=== PATIENT | female | born 1975 | race Caucasian/White ===

== ENCOUNTER → 2018-06-02 | Outpatient (CLI) | payer OTHER ==
[~2018-06-02] MED LIST: CITA-128 PO; IBU800 PO; PREN-85 PO
--- NOTE | 2018-06-03 08:31 | RADIOLOGY IMAGING REPORT ---
FACILITY: [facility] PATIENT NAME: JAIRO ROMEO : [id number] MR: [id number] V: [id number] EXAM DATE: ORDERING PHYSICIAN: ENDER BEAR TECHNOLOGIST: Ros Culver PROCEDURE:BILATERAL DIAGNOSTIC DIGITAL MAMMOGRAM WITH CAD ASSISTED INTERPRETATION & 3D TOMOSYNTHESIS COMPARISON:Prior mammogram 11/21/14 Prior breast MR 09/04/15. INDICATIONS:RT BREAST MASS, FIBROCYSTIC CHANGES, IMPLANTS FINDINGS: There are bilateral subpectoral breast implants in place. Dense heterogeneous fibroglandular tissue is seen anterior to the implants. The parenchymal pattern has remained stable allowing for difference in mammographic technique & patient positioning. There is no evidence of malignant appearing mass, malignant appearing calcifications or other secondary sign of malignancy in either breast. 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 DIAGNOSTIC CATEGORY 3--PROBABLY BENIGN FINDING. RECOMMENDATIONS: SIX MONTH FOLLOW-UP DIAGNOSTIC MAMMOGRAM: RIGHT BREAST. IMPRESSION: BIRADS 3: Probably benign finding. A 6 month follow-up Right breast Ultrasound is recommended as described above. Dictated by: Gilma Ramos M.D. on 06/02/2018 at 16:23 Transcribed by: ALESIA on 06/03/2018 at 8:27 Approved by: Gilma Ramos M.D. on 06/03/2018 at 8:30 [facility]
--- NOTE | 2018-06-03 09:11 | RADIOLOGY IMAGING REPORT ---
FACILITY: [facility] [place] PATIENT NAME: JAIRO ROMEO : [id number] MR: [id number] V: [id number] EXAM DATE: ORDERING PHYSICIAN: ENDER BEAR TECHNOLOGIST: Taylor Serrato RDMS PROCEDURE:US RIGHT BREAST COMPLETE COMPARISON:Right breast Ultrasound 09/10/15. INDICATIONS:RT BREAST MASS, FIBROCYSTIC CHANGES FINDINGS: In the 5 o'clock position of the Right breast there is a 1.4 x 0.9 x 2.3cm ovoid well circumscribed hypoechoic mass this previously measured 1.6 x 0.5 x 1.1cm and has increased in size. There is no acoustic shadowing. There is faint acoustic enhancement. The nodule is wider than tall. In the axillary tail of the Right breast there is a well circumscribed ovoid hypoechoic nodule measuring 1.2 x 0.6 x 1cm which is wider than tall with no acoustic shadowing and faint acoustic enhancement. This Right axillary nodule was not imaged on the prior study. In the 3 o'clock Right retroareolar breast there is a 1.3 x 0.6 x 1.2cm well circumscribed ovoid hypoechoic nodule with no acoustic shadowing. The nodule is wider than tall. In the 10 o'clock position of the Right breast there is a 5.5 x 4.9 x 3.3mm well circumscribed ovoid hypoechoic nodule that is wider than tall with faint acoustic enhancement. This also was not imaged on the prior study. DIAGNOSTIC CATEGORY 3--PROBABLY BENIGN FINDING. RECOMMENDATIONS: SIX MONTH FOLLOW-UP ULTRASOUND: RIGHT BREAST. IMPRESSION: BIRADS 3: Probably benign finding. There are multiple ovoid hypoechoic nodules identified in the Right breast as detailed above. All of them are wider than tall most of them have faint acoustic enhancement. Most of them were not imaged on the prior study although the nodule in the 5 o'clock position was imaged and appears to have increased in size. 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 Dictated by: Gilma Ramso M.D. on 06/02/2018 at 16:21 Transcribed by: ALESIA on 06/03/2018 at 8:48 Approved by: Gilma Ramos M.D. on 06/03/2018 at 9:10 [facility]
== END ==
LOC: MAMO 05-30 14:59
PROVIDERS: ATTEND Nurse Practitioner Family
DX: N63.14 Unspecified lump in the right breast, lower inner quadrant (principal); N63.31 Unspecified lump in axillary tail of the right breast; N63.12 Unspecified lump in the right breast, upper inner quadrant; N63.11 Unspecified lump in the right breast, upper outer quadrant; Z98.82 Breast implant status
CPT/HCPCS: 77062; 77066

== ENCOUNTER 2018-08-19 11:38 | Emergency (ER) | payer OTHER ==
[2018-08-19 11:43] VITALS: BP 102/48
--- NOTE | 2018-08-19 11:46 | ER Report ---
History and Physical Time Seen By MD: 11:43 HPI/ROS CHIEF COMPLAINT: Laceration HISTORY OF PRESENT ILLNESS: This is a 42-year-old female presents to the emergency department for a laceration. Patient states that about 15-20 minutes prior to arrival she was cutting a poor tenderloin, nice slipped and she lacerated the distal index finger along the DIP on the dorsum, nail is intact. Bleeding is controlled. No fevers or chills. No numbness or tingling. REVIEW OF SYSTEMS: Respiratory: No cough, no dyspnea. Cardiovascular: No chest pain, no palpitations. Gastrointestinal: No vomiting, no abdominal pain. Musculoskeletal: No back pain. Integumentary: As above. Allergies: Coded Allergies: No Known Drug Allergies (Verified , 08/19/18) Home Meds Reported Medications Citalopram Hydrobromide (Citalopram Hbr) 20 Mg Tablet, 20 MG PO DAILY, 0 Refills 06/19/11 Discontinued Reported Medications Vits W-Ca,Fe,Fa(<1MG) () 1 Each Tablet, 1 EACH PO DAILY, 0 Refills Continue while . 06/19/11 Past Medical/Surgical History Patient has a past medical and surgical history of bloody stools, breast cysts 4 with excision, wears contacts and glasses, depression, tonsillectomy. Reviewed Nurses Notes: Yes Constitutional Vital Sign - Last 24 Hours 08/19/18 11:43 Temp 98.2 Pulse 60 Resp 20 B/P (MAP) 102/48 Pulse Ox 90 O2 Delivery Room Air Physical Exam General Appearance: The patient is alert, has no immediate need for airway protection and no current signs of toxicity. Eyes: Pupils equal and round no injection. Respiratory: Chest is non tender, lungs are clear to auscultation. Cardiac: regular rate and rhythm Gastrointestinal: Abdomen is soft and non tender, no masses, bowel sounds normal. Musculoskeletal: Neck: Neck is supple and non tender. Extremities have full range of motion and are non tender. Skin: Two centimeter laceration to the dorsum of the left index finger along the DIP, nail intact, bleeding controlled.+ Flexion and extension. DIFFERENTIAL DIAGNOSIS: After history and physical exam differential diagnosis was considered for laceration. Medical Decision Making ED Course/Re-evaluation ED Course The patient was admitted to room. A history and physical were obtained. Differential diagnoses were considered. The wound was anesthetized, irrigated, scrubbed and repaired as noted below. The wound was then dressed with bacitracin Adaptic and tube gauze. Patient was instructed to monitor for signs of infection, follow-up in 7 days to have the sutures removed. Patient expressed understanding, tetanus was updated. Patient was discharged home. Procedure: Laceration repair. Verbal consent was obtained from the patient. The 2 cm laceration on the dorsum of the left index finger along the DIP, was anesthetized in the usual fashion. The wound was scrubbed, draped and explored to its base with a gloved finger. There were no deep structures involved. No tendon injury was identified. The wound was repaired with 4, 5-0 Prolene, simple interrupted sutures. The wound repair was simple. The procedure was performed by myself. Decision to Disposition Date: Aug 19, 2018 Decision to Disposition Time: 12:12 Depart Departure Latest Vital Signs Vital Signs Date Time Temp Pulse Resp B/P (MAP) Pulse Ox O2 Delivery O2 Flow Rate FiO2 08/19/18 11:43 98.2 60 20 102/48 90 Room Air Impression: Primary Impression: Laceration of left index finger w/o foreign body w/o damage to nail Condition: Improved Disposition: HOME OR SELF-CARE Referrals: ENDER BEAR (PCP) Patient Instructions: Acute Wound Care (ED), Finger Laceration (ED) Additional Instructions: Keep wound dry for 48 hours. Follow up with your primary care provider in the next 7 days to have sutures removed. Monitor for signs of infection; redness, swelling, heat, discharge, increasing pain or red streaking. Take Tylenol or Ibuprofen as needed for pain. Return to the ER with any concerns. You may change dressing as needed. Problem Qualifiers Primary Impression: Laceration of left index finger w/o foreign body w/o damage to nail Encounter type: initial encounter Qualified Codes: S61.211A - Laceration without foreign body of left index finger without damage to nail, initial encounter GISELE METZ-BC Aug 19, 2018 11:46
[2018-08-19] MEDS ORDERED: DIPHTH/TETANUS/ACEL. PERTUSSIS IM ONLY ONE (12:00)
== END 2018-08-19 12:49 | disposition home or self-care (01) ==
LOC: ER 11:44
DX: S61.211A Laceration without foreign body of left index finger without damage to nail, initial encounter (principal); W26.0XXA Contact with knife, initial encounter
CPT/HCPCS: 90471; 90715; 99283

== ENCOUNTER → 2018-12-28 | Outpatient (REF) | payer OTHER ==
[~2018-12-28] MED LIST changes: +ESCI20TA38 PO; +LEVO1IUD3 IY; +LORA-802 PO
== END ==
LOC: ZZSENDIN 17:45
PROVIDERS: ATTEND Orthopaedic Surgery
DX: M06.342 Rheumatoid nodule, left hand (principal); D17.21 Benign lipomatous neoplasm of skin and subcutaneous tissue of right arm
CPT/HCPCS: 88304